=== PATIENT | female | born 1990 | race Caucasian/White ===

== ENCOUNTER 2017-05-27 14:18 | Inpatient (IN) | payer OTHER ==
[2017-05-27 15:20] LABS: Hematocrit 40 % (35-47); Mean Corpuscular HGB Conc 33 g/dl (31-36); Mean Corpuscular Hemoglobin 28 pg (27-31); Mean Corpuscular Volume 85 fL (80-97); Mean Platelet Volume 8 um3 (7.4-10.4); Platelet Count 421 10^3/ul (150-450); Red Blood Count 4.71 10^6/ul (4.0-5.4); Red Cell Distribution Width 15 % (10.5-15); White Blood Count 11.4 10^3/ul (3.5-10.8)
[2017-05-27] MEDS ORDERED: Sodium Citrate/Citric Acid* 15 ML UDC ONE (15:24)
[2017-05-27] MEDS ORDERED: ceFOXitin 2 GM IVPREMIX* 2 GM/50 ML BAG ONE (15:24)
[2017-05-27] MEDS ORDERED: ceFOXitin 2 GM IVPREMIX* 2 GM/50 ML BAG IVPB ONE (15:33)
[2017-05-27] MEDS ORDERED: Sodium Citrate/Citric Acid* 15 ML UDC PO ONE (15:33)
[2017-05-27] MEDS ORDERED: Naloxone* 0.4 MG/ML 1 ML VIAL IV PRN (16:38)
[2017-05-27] MEDS ORDERED: oxyCODONE TAB* 5 MG TAB PO PRN (16:38)
[2017-05-27] MEDS ORDERED: Nalbuphine* 20 MG/ML 1 ML VIAL IV PRN ×2 (16:38)
[2017-05-27] MEDS ORDERED: DiMENhydriNATE IV* 50 MG/ML VIAL IV PUSH PRN (16:38)
[2017-05-27] MEDS ORDERED: diPHENhydraMINE IV* 50 MG/ML 1 ml VIAL (BENADRYL) IV PRN (16:38)
[2017-05-27] MEDS ORDERED: HYDROmorphone INJ* 1 MG/ML CARPUJECT SYRINGE IV PRN (16:38)
[2017-05-27] MEDS ORDERED: Zolpidem TAB* 5 MG PO PRN (17:04)
[2017-05-27] MEDS ORDERED: Glycerin ADULT SUPP PR PRN (17:04)
[2017-05-27] MEDS ORDERED: Witch Hazel PAD* JAR TOPICAL PRN (17:04)
[2017-05-27] MEDS ORDERED: Dibucaine 1% 28.35 GM TUBE PR PRN (17:04)
[2017-05-27] MEDS ORDERED: Ibuprofen TAB* 600 MG PO PRN (17:04)
[2017-05-27] MEDS ORDERED: Ketorolac INJ* 30 MG/ML 1 ML VIAL ONE (17:30)
[2017-05-27] MEDS: Ketorolac INJ* 30 MG/ML 1 ML VIAL IV PRN ×2 (17:34→23:20)
[2017-05-27] MEDS ORDERED: Oxytocin in LR* 20 UNITS/1,000 ML BAG IVPB SCH (18:00)
[2017-05-27 18:56] LABS: ABS Basophils 0.1 10^3/ul (0-0.2); ABS Eosinophils 0.1 10^3/ul (0-0.6); ABS Monocytes 0.7 10^3/ul (0-0.8); ABS Neutrophils 8.2 10^3/ul (1.5-7.7); ABS Nucleated RBC 0.02 10^3/ul; Eosinophil % 0.9 % (0-6); Nucleated Red Blood Cells % 0.1
[2017-05-27] MEDS: Simethicone TAB* 80 MG TAB.CHEW PO SCH ×2 (19:46→20:40)
[2017-05-27] MEDS: Docusate CAP* 100 MG PO SCH (20:40)
[2017-05-27] MEDS: Acetaminophen TAB* 325 MG PO PRN (21:38)
[2017-05-28] MEDS: Acetaminophen TAB* 325 MG PO PRN (04:03)
--- NOTE | 2017-05-28 04:30 | OP ---
DATE OF OPERATION: 05/27/17 - ROOM #MCHOB-102 DATE OF : 86 SURGEON: Ashok Brewer MD CASE SEALER: Sofiya Hensley CNM ANESTHESIA: Spinal. PRE-OP DIAGNOSES: Breech presentation, chronic hypertension, in labor. POST-OP DIAGNOSES: Breech presentation, chronic hypertension, in labor. OPERATIVE PROCEDURE: Low-transverse section. ESTIMATED BLOOD LOSS: 600 cc. FINDINGS: This is a 27-year-old patient who has had chronic hypertension throughout her . She was scheduled for a repeat section at 37 plus weeks. Due to a breech presentation and her chronic hypertension, she came in, in labor the day before her scheduled surgery and was found to be 4 to 5 by the nurses and sandra regularly with category 1 tracing. After the risks, benefits, alternatives, and indications were discussed, we proceeded with her on that day. At the time of , she had a viable female. Apgars 8 and 9, weight was 7 pounds 6 ounces. Normal appearing uterus , fallopian tubes, and ovaries. No evidence for cause for the breech presentation. DESCRIPTION OF PROCEDURE: The patient identified, procedure identified as low transverse section. The patient was taken to the operating room, prepped and draped in the usual fashion in the left lateral recumbent position under spinal anesthesia. A Pfannenstiel incision was made in the abdomen and carried down through fat, fascia, and peritoneum. A transverse incision was made in the lower uterine segment and extended laterally using blunt dissection. The above infant was delivered through the incision with ease. The cord was doubly clamped and cut and the was handed to the awaiting software verification engineer. Cord blood was obtained. Placenta delivered spontaneously. The uterus was wiped out with a wet lap sponge. The uterine incision was then closed using 0 Polysorb in a running fashion. A second layer was used to imbricate the first layer. Good hemostasis was verified. The uterus was placed back into the abdominal cavity. The gutters were wiped out with a wet lap sponge. Again, the hemostasis was verified. The peritoneum was then closed using 3-0 Polysorb in a running fashion. Good hemostasis achieved in the subrectus layers. The fascia was closed using 0 Polysorb in a running fashion. Hemostasis was achieved in the subcu and the skin was closed with 4-0 Monocryl in a subcuticular fashion. All sponge and instrument counts were correct and the patient returned to the recovery room in stable condition. [id number]/[facility] #: [id number] [facility]ERS[facility] HOSPITALSabina
[2017-05-28] MEDS: Ketorolac INJ* 30 MG/ML 1 ML VIAL IV PRN ×2 (05:29→11:44)
[2017-05-28 06:40] LABS: ABS Basophils 0.1 10^3/ul (0-0.2); ABS Eosinophils 0.1 10^3/ul (0-0.6); ABS Lymphocytes 1.4 10^3/ul (1.0-4.8); ABS Monocytes 1.2 10^3/ul (0-0.8); ABS Neutrophils 11.3 10^3/ul (1.5-7.7); ABS Nucleated RBC 0 10^3/ul; Eosinophil % 0.4 % (0-6); Hematocrit 32 % (35-47); Hemoglobin 10.4 g/dl (12.0-16.0); Mean Corpuscular HGB Conc 33 g/dl (31-36); Mean Corpuscular Hemoglobin 28 pg (27-31); Mean Corpuscular Volume 85 fL (80-97); Mean Platelet Volume 8 um3 (7.4-10.4); Nucleated Red Blood Cells % 0; Platelet Count 326 10^3/ul (150-450); Red Cell Distribution Width 15 % (10.5-15); White Blood Count 14.1 10^3/ul (3.5-10.8)
[2017-05-28] MEDS: oxyCODONE/Acetamin 5/325 MG* TAB PO PRN ×3 (08:19→20:33)
[2017-05-28] MEDS: Docusate CAP* 100 MG PO SCH ×3 (08:21→20:33)
[2017-05-28] MEDS: Simethicone TAB* 80 MG TAB.CHEW PO SCH ×5 (08:21→20:33)
[2017-05-28] MEDS ORDERED: Ferrous Gluconate TAB* 324 MG TAB PO SCH (09:00)
[2017-05-28] MEDS: Ibuprofen TAB* 600 MG PO PRN (17:23)
[2017-05-29] MEDS: Ibuprofen TAB* 600 MG PO PRN ×4 (00:17→23:15)
[2017-05-29] MEDS: Acetaminophen TAB* 325 MG PO PRN (00:17)
[2017-05-29] MEDS: oxyCODONE/Acetamin 5/325 MG* TAB PO PRN ×5 (04:45→23:16)
[2017-05-29] MEDS: Simethicone TAB* 80 MG TAB.CHEW PO SCH ×4 (09:55→23:17)
[2017-05-29] MEDS: Docusate CAP* 100 MG PO SCH ×3 (09:55→23:18)
[2017-05-30 07:59] LABS: ABS Basophils 0 10^3/ul (0-0.2); ABS Eosinophils 0.2 10^3/ul (0-0.6); ABS Lymphocytes 2.2 10^3/ul (1.0-4.8); ABS Monocytes 0.9 10^3/ul (0-0.8); ABS Nucleated RBC 0 10^3/ul; Eosinophil % 1.7 % (0-6); Hematocrit 33 % (35-47); Hemoglobin 10.9 g/dl (12.0-16.0); Lymphocyte % 19.1 % (25-47); Mean Corpuscular HGB Conc 33 g/dl (31-36); Mean Corpuscular Hemoglobin 28 pg (27-31); Mean Corpuscular Volume 85 fL (80-97); Mean Platelet Volume 8 um3 (7.4-10.4); Nucleated Red Blood Cells % 0; Platelet Count 444 10^3/ul (150-450); Red Blood Count 3.89 10^6/ul (4.0-5.4); Red Cell Distribution Width 15 % (10.5-15); White Blood Count 11.4 10^3/ul (3.5-10.8)
[2017-05-30 08:09] LABS: EGFR Non-African American 100.6 (>60)
[2017-05-30] MEDS: Docusate CAP* 100 MG PO SCH ×3 (08:45→21:38)
[2017-05-30] MEDS: Simethicone TAB* 80 MG TAB.CHEW PO SCH ×4 (08:45→21:38)
[2017-05-30] MEDS ORDERED: NS 0.9% w/ 40 Meq KCL 1000 ML* 1,000 ML IV SCH (09:00)
[2017-05-30] MEDS: oxyCODONE/Acetamin 5/325 MG* TAB PO PRN (09:40)
--- NOTE | 2017-05-30 11:07 | CONS ---
CONSULTATION REPORT: DATE OF EVALUATION: 05/30/17 at 7 a.m. REQUESTING PHYSICIAN: Dr. Madison Yang. CHIEF COMPLAINT: Palpitations. HISTORY OF PRESENT ILLNESS: Ms. Harding is a 27-year-old lady with a past medical history of SVT, status post ablation; migraine; Arnold-Chiari malformation type I, status post repair; chronic hypertension through , who was admitted on 05/27/17 at 37 weeks of for a due to breech presentation and chronic hypertension. The patient was doing well in the postop period and the plan was actually for the patient to be discharged home today, but last night she had 1 episode of palpitations that was associated with heart pounding and complains of "not feeling right." Her heart rate was found to be 197 and the patient received ice to the forehead, was encouraged to bear down, and with those maneuvers, her rate dropped to 130s. Her symptoms improved and by the time an EKG was performed, she was found to be the sinus tachycardia at 118 beats per minute. The patient states that she was feeling fine overnight after that episode, but around 7 in the morning, she developed the same symptoms of chest tightness, heart pounding, and racing, some shortness of breath, lightheadedness. Her heart rate was found to be greater than 200 and the hospitalist service was called for evaluation. On my arrival to the room, the patient appeared to be pale and was complaining of lightheadedness. Heart rate on the portable monitor was 240 showing a narrow complex tachycardia. The patient's blood pressure was 130/100, but considering her symptoms and clinical appearance, decision was made to give her adenosine. The patient received 1 dose of 6 mg IV and her SVT broke into sinus tachycardia with heart rate between 130s and 140s. She had immediate improvement of her symptoms. Following adenosine, the patient received 5 mg of metoprolol IV and 25 mg of metoprolol tartrate p.o. and she was transferred to the telemetry floor for further monitoring. The patient states she has a history of SVT and in 2012, she had an ablation performed by Dr. Julian Pereira at [facility]. She states that she did well after the procedure and was controlled with metoprolol tartrate 25 mg twice a day, but this was discontinued a couple of years ago as she remained asymptomatic. The patient states she has sporadic episodes of palpitations. She states that usually lying down for 20 to 30 minutes, it is enough to resolve the episode and she has not required medications and has not had further cardiology followup since. PAST MEDICAL HISTORY: 1. Migraines. 2. Arnold-Chiari malformation type I, status post repair in 2011. 2. SVT, status post ablation in 2013. 3. Chronic hypertension during her . MEDICATIONS: Medication list prior to admission vitamin 1 tablet p.o. daily. ALLERGIES: With PINEAPPLE, the patient experienced a rash. FAMILY HISTORY: Grandfather had a history of melanoma. SOCIAL HISTORY: The patient denies tobacco, alcohol, or drug use. She has a master's degree. She is and surrogate decision maker is her , Jerrod Harding, phone number is [phone]. REVIEW OF SYSTEMS: A 14 point review of systems was performed and all the pertinent negative and positive findings are in the HPI. PHYSICAL EXAMINATION: Vital Signs: Temperature 97.5, heart rate is 100, respiratory rate is 18, oxygen saturation is 100% on 2 L nasal cannula, blood pressure is 120/75. General: The patient is a young lady, lying in bed, in no acute distress. HEENT: Pupils are equal, moist mucous membranes. CVS: Normal S1 and S2. Regular rate and rhythm. Chest: Breath sounds present bilaterally with no added sounds. Abdomen is soft. Bowel sounds are present. incision is dry. Neuro: She is alert, awake, and oriented x3. She is able to move all 4 extremities. DIAGNOSTIC STUDIES/LAB DATA: The patient had a CBC that showed a WBC of 11.4, hemoglobin of 10.9, hematocrit of 33, platelets 444 with 70% neutrophils. Chemistry showed sodium of 139, potassium 3.8, chloride of 106, bicarb of 23, BUN of 12, creatinine of 0.69, glucose of 77, calcium of 9.1. TSH and magnesium are pending at the time of this dictation. EKG done at 6:58 a.m. shows narrow complex tachycardia with a heart rate of 199. ASSESSMENT AND PLAN: Ms. Harding is a 27-year-old lady with a past medical history of migraines; chronic hypertension during ; Arnold-Chiari malformation type I, status post repair; supraventricular tachycardia, status post ablation, admitted for section due to breech presentation, who developed supraventricular tachycardia, the reason why the hospitalist service was consulted: 1. Supraventricular tachycardia: The patient was symptomatic with heart rate of 240 and her supraventricular tachycardia broke with 1 dose of adenosine. She will be continued on metoprolol as this drug has worked well for her in the past. She will be monitored on telemetry to make sure she does not have any recurrence over the next 24 hours. A Cardiology consultation was requested with Dr. Fu. We are going to follow her TSH and magnesium and we are going to obtain the records from her prior ablation at [facility]. 2. Status post section. The patient appears to be doing well from a postop point of view. She states that her pain is controlled and she is actually anxious to be discharged home. I discussed the case with OB and Pediatrics and we all agree that the patient can continue to breast-feed on her current medication regimen. 3. DVT prophylaxis. The patient has a score of 2 on the DVT Prophylaxis Risk Assessment Guide and she will have SCDs while in bed and we are going to encourage ambulation. 4. Code status is full. TIME SPENT: Approximately 60 minutes was spent with the patient interview, medical records review, physical examination, more than half of this time was spent face-to- face with the patient in coordination of care. [id number]/[facility] #: [id number] JANYD
--- NOTE | 2017-05-30 11:56 | CONS ---
CC: Dr. Brewer CARDIOLOGY CONSULTATION: DATE OF CONSULT: 05/30/17 INDICATION FOR CONSULT: SVT. HISTORY OF PRESENT ILLNESS: The patient is a 27-year-old female with a history of SVT in the past. She has had SVT ablation 5 years ago. The patient states that she will occasionally get palpitatio ns in the last 5 years. They generally last just 5 or 10 seconds and then resolve on their own. Th e patient underwent section yesterday and delivered a 7-pound baby girl. She was observed overnight. Overnight, she had onset of her SVT at 240 beats per minute. She felt slightly lighthead ed with it, she did not have any chest pain. The patient was given adenosine and converted back to normal sinus rhythm. A couple of hours later, she had another episode of SVT, again requiring adeno sine conversion. This morning, the patient has no complaints. She has no chest pain. She has no l ightheadedness, dizziness, or syncope. PAST MEDICAL HISTORY: Significant for SVT, history of Chiari decompression in 2011. She had a cesa rean section yesterday. OUTPATIENT MEDICATIONS: None. ALLERGIES: No medical allergies. FAMILY HISTORY: No family history of early coronary artery disease or arrhythmias. SOCIAL HISTORY: She is . She denies tobacco or alcohol use. She does exercise regularly. PHYSICAL EXAM: Height is 5 feet 5 inches, weight is 195 pounds. Temperature 98, heart rate is 100, respiratory rate is 18, blood pressure 136/84. Sclerae anicteric. Oropharynx is pink without eryt servando. Carotids are 2+ without bruits. JVD is normal. Thyroid is normal. Cardiac Exam: S1, S2 wit hout any murmurs, rubs, or gallops. PMI is normal. Lungs are clear to auscultation. There is no d ullness to percussion. Abdomen is post-gravid, mildly tender to palpation, minimal bowel sounds. E xtremities show no edema. She has 2 + pulses throughout. The patient is awake, alert, and oriented. She moves all 4 extremities equally. DIAGNOSTIC STUDIES/LAB DATA: CBC: White count 11, hemoglobin 10, hematocrit 33, platelet count 444 . Chemistries are within normal limits. Potassium, BUN and creatinine, thyroid are all normal. EKG demonstrates sinus tachycardia at 105 beats per minute. This morning, she had an EKG showing an SVT at 240 beats per minute with a narrow complex rhythm. IMPRESSION: This is a 27-year-old female with a history of supraventricular tachycardia, who had an episode of supraventricular tachycardia last night. She was post delivery after a section . The patient responded quickly to adenosine infusion. At this point, my recommendation is the patient be discharged from the hospital on Lopressor 12.5 mg b.i.d. As an outpatient, I will schedule the patient for an echocardiogram for reevaluation of her cardiac status. I will see the patient in followup after that. This was discussed with Dr. Hoskins. [id number]/[facility] #: [id number]
[2017-05-30] MEDS: Ibuprofen TAB* 600 MG PO PRN ×2 (12:30→19:36)
[2017-05-30] MEDS: Acetaminophen TAB* 325 MG PO PRN ×2 (14:21→21:39)
[2017-05-30] MEDS ORDERED: Potassium Chlor TAB* 20 MEQ TAB.ER PO ONE (16:11)
[2017-05-30] MEDS: Metoprolol Tartrate TAB* 25 MG PO SCH (17:47)
[2017-05-30] MEDS ORDERED: Metoprolol Tartrate TAB* 25 MG PO SCH (20:00)
[2017-05-31 05:19] VITALS: BP 131/77
[2017-05-31] MEDS: Acetaminophen TAB* 325 MG PO PRN (06:28)
[2017-05-31] MEDS: Metoprolol Tartrate TAB* 25 MG PO SCH (06:28)
--- NOTE | 2017-06-01 01:18 | DS ---
CC: Dr. Lopez; Dr. Fu. DISCHARGE SUMMARY: ADDENDUM: DATE OF ADMISSION: 05/27/17 DATE OF DISCHARGE: 05/31/17 MOTHER REPAIRER: Dr. Lopez. CONSULTING CARDIOLOGY: Dr. Fu. DISCHARGE DIAGNOSES: 1. Status post section delivery. 2. Episode of supraventricular tachycardia. Please note that this the summary of a consultation done by the hospitalist service. Ms. Meaghan rao s a 27-year-old lady with a past medical history of migraines; Arnold-Chiari malformation type 1, st atus post repair; SVT, status post ablation; chronic hypertension; who was admitted on 05/27/17 for a delivery at 37 weeks of . For details about her obstetric care, I refer you to Dr. Lopez's discharge summary. On 05/30/17, the hospitalist service was consulted because the patient had an episode of SVT. For m ore details about the episode, I refer you to my consultation from 05/30/17. In summary, the patien lina was found to have a heart rate greater than 200 with a narrow tachycardia persistently requiring a denosine and she was later on transferred to the telemetry floor for monitoring. She was seen in consultation by Cardiology (Dr. Fu) and his recommendation was for the patient to be discharged home on metoprolol and to follow up with him as outpatient and he will also perform a n echocardiogram as outpatient. Initially, the plan was for the patient to be started on 12.5 mg of metoprolol, but as she continued to have some tachycardia, she was discharged on 25 mg of metoprolo l tartrate twice a day for a week, to be tapered to 12.5 mg twice a day after that. The patient had no further episodes of SVT while on telemetry, only brief episodes of sinus tachycardia, usually rel ated to anxiety or emotional episodes with her baby. The patient is medically stable for discharge at this time. [id number]/[facility] #: [id number]
== END 2017-05-31 08:45 | disposition home or self-care (01) | DRG 765 ==
LOC: MCHOBOUT 14:18 → INTOOBSV 14:55 → MCHOB 14:55 → OBSVTOIN 14:55 → MCHOB 17:21 → MEDTELE 05-30 08:04
PROVIDERS: ADMIT Internal Medicine; ATTEND Internal Medicine
PROC: 10D00Z1 Extraction of Products of Conception, Low, Open Approach (ICD-10-PCS; principal; 2017-05-27 15:50)
DX: O32.1XX0 Maternal care for breech presentation, not applicable or unspecified (principal); O60.23X1 Term delivery with preterm labor, third trimester, fetus 1; O10.92 Unspecified pre-existing hypertension complicating childbirth; I47.1 Supraventricular tachycardia; O69.81X0 Labor and delivery complicated by cord around neck, without compression, not applicable or unspecified; O77.0 Labor and delivery complicated by meconium in amniotic fluid; O90.89 Other complications of the puerperium, not elsewhere classified; R94.31 Abnormal electrocardiogram [ECG] [EKG]; Z3A.37 37 weeks gestation of pregnancy; Z37.0 Single live birth; Z91.018 Allergy to other foods
CPT/HCPCS: 36415; 80048; 83735; 84443; 85025; 86850; 86900; 86901; 93005; 94760; A9270-GY; G0378; J0694; J1885

== ENCOUNTER 2017-11-10 12:07 | Emergency (ER) | payer OTHER ==
[2017-11-10 12:43] LABS: ABS Basophils 0.1 10^3/ul (0-0.2); ABS Eosinophils 0.1 10^3/ul (0-0.6); ABS Lymphocytes 2.2 10^3/ul (1.0-4.8); ABS Monocytes 0.5 10^3/ul (0-0.8); ABS Neutrophils 3.2 10^3/ul (1.5-7.7); ABS Nucleated RBC 0 10^3/ul; Eosinophil % 2.3 % (0-6); Hematocrit 41 % (35-47); Hemoglobin 13.8 g/dl (12.0-16.0); Lymphocyte % 35.5 % (25-47); Mean Corpuscular HGB Conc 34 g/dl (31-36); Mean Corpuscular Hemoglobin 30 pg (27-31); Mean Corpuscular Volume 90 fL (80-97); Nucleated Red Blood Cells % 0; Platelet Count 350 10^3/ul (150-450); Red Blood Count 4.56 10^6/ul (4.0-5.4); Red Cell Distribution Width 14 % (10.5-15); White Blood Count 6.1 10^3/ul (3.5-10.8)
[2017-11-10 13:28] LABS: EGFR Non-African American 79.1 (>60)
[2017-11-10] MEDS ORDERED: Iohexol 300* (CONTRAST) 10 ML SDV IV ONE (13:32)
--- NOTE | 2017-11-10 14:16 | RAD ---
HISTORY: Soft tissue mass, lump on back of neck COMPARISONS: None TECHNIQUE: Multiple contiguous axial CT scans were obtained of the neck after the administration of nonionic intravenous contrast, with coronal and sagittal multiplanar reformations. FINDINGS: BRAIN AND ORBITS: The visualized brain and orbits are normal. The patient is status post suboccipital craniectomy. PARANASAL SINUSES: The visualized paranasal sinuses are clear. SALIVARY GLANDS: The parotid glands, submandibular glands, sublingual glands are normal. NASAL CAVITY/NASOPHARYNX: The nasal cavity and nasopharynx are normal. ORAL CAVITY/OROPHARYNX: The oral cavity is obscured by streak artifact from dental amalgam. The visualized oral cavity and oropharynx are unremarkable. LARYNGEAL APPARATUS/HYPOPHARYNX: The laryngeal apparatus and hypopharynx are normal. UPPER AIRWAY/UPPER ESOPHAGUS: The visualized upper airway and esophagus are normal. LUNG APICES: The lung apices are clear. THYROID GLAND: The thyroid gland is normal. LYMPH NODES: There is no lymphadenopathy by size criteria. VASCULATURE: The vasculature is unremarkable. BONES AND SOFT TISSUES: As noted above, the patient is status post suboccipital craniotomy. There is post surgical change to the soft tissues of the neck. There is mild prominence of the subcutaneous fat at the base of the neck. It is unclear if this corresponds the palpable abnormality. There is no discrete mass to correspond to the history of palpable abnormality. Mild degenerative changes are noted at C5-C6. OTHER: None. IMPRESSION: 1. STATUS POST SUBOCCIPITAL CLINICALLY. 2. NO LYMPHADENOPATHY BY SIZE CRITERIA. 3. THERE IS MILD PROMINENCE OF THE SUBCUTANEOUS FAT AT THE BASE OF THE NECK. IT IS UNCLEAR IF THIS CORRESPONDS THE PALPABLE ABNORMALITY DESCRIBED IN HISTORY. THERE IS NO DISCRETE MASS TO CORRESPOND TO THE HISTORY OF PALPABLE ABNORMALITY. 4. A NEGATIVE REPORT SHOULD NOT PRECLUDE OR DELAY THE EVALUATION OF A CLINICALLY SUSPICIOUS PALPABLE ABNORMALITY
[2017-11-10 15:43] VITALS: BP 112/74
--- NOTE | 2017-11-10 19:10 | ED ---
Gely Castano Julia, scribed for Reid Mcintyre MD on 11/10/17 at 1429 . Neck Pain - HPI Summary HPI Summary: This patient is a 27 year old F presenting to [facility] with a chief complaint of posterior neck pain and lump for about a week. The patient rates the pain 7/ 10 in severity. Patient was seen at urgent care and was suggested to see a surgeon. Surgeon performed an US, that did not show any fluid. Prior to arrival he suggested she have a CT scan performed. Patient denies cough and fever. Medications reviewed this patient. Pt had sx for chiari malformation. - History of Current Complaint Chief Complaint: EDNeckComplaint Stated Complaint: NECK SWELLING-SENT / STAR Time Seen by Provider: 11/10/17 12:23 Hx Obtained From: Patient Hx Last Menstrual Period: none IUD, 5 month old infant Onset/Duration Of Injury/Symptoms: Weeks Mechanism Of Injury: No Known Trauma Timing: Constant Onset/Duration: Started weeks ago, Still Present Pain Intensity: 7 Pain Scale Used: 0-10 Numeric Location: Discrete At: - posterior C-spine Associated Signs & Symptoms: Positive: Swelling Related History: Similar Episode/Dx As: - chiari malformation - Allergies/Home Medications Allergies/Adverse Reactions: Allergies Allergy/AdvReac Type Severity Reaction Status Date / Time MS Pineapple [Pineapple] Allergy Mild Rash Verified 05/27/17 15:27 Home Medications: Home Medications Metoprolol Tartrate TAB* [Lopressor TAB*] 12.5 mg PO BID 11/10/17 [History Confirmed 11/10/17] PMH/Surg Hx/FS Hx/Imm Hx Cardiovascular History: Reports: Hx Supraventricular Ventricular Tachycardia Sensory History: Denies: Hx Contacts or Glasses, Hx Hearing Aid Opthamlomology History: Denies: Hx Contacts or Glasses Neurological History: Reports: Other Neuro Impairments/Disorders - chiari malformation - Surgical History Surgery Procedure, Year, and Place: CHIARI FORMATION - SURGICAL REPAIR Infectious Disease History: No Infectious Disease History: Denies: Traveled Outside the [place] in Last 30 Days - Social History Alcohol Use: None Substance Use Type: Reports: None Smoking Status (MU): Never Smoked Tobacco Have You Smoked in the Last Year: No Review of Systems Negative: Fever Negative: Cough Positive: Myalgia - neck pain, Edema - posterior neck All Other Systems Reviewed And Are Negative: Yes Physical Exam - Summary Physical Exam Summary: Appearance: Well appearing, no pain distress Skin: warm, dry, reflects adequate perfusion Head/face: normal Eyes: EOMI, VIJAY ENT: normal Neck: supple, soft mass at base of c-spine that is [id number] that is tender and warm to touch Respiratory: CTA, breath sounds present Cardiovascular: RRR, pulses symmetrical Abdomen: non-tender, soft Bowel Sounds: present Musculoskeletal: normal, strength/ROM intact Neuro: normal, sensory motor intact, A&Ox3 Triage Information Reviewed: Yes Vital Signs On Initial Exam: Initial Vitals Temp Pulse Resp BP Pulse Ox 98.6 F 61 14 124/78 100 11/10/17 12:10 11/10/17 12:10 11/10/17 12:10 11/10/17 12:10 11/10/17 12:10 Vital Signs Reviewed: Yes Diagnostics - Vital Signs Vital Signs Temp Pulse Resp BP Pulse Ox 11/10/17 12:10 98.6 F 61 14 124/78 100 - Laboratory Lab Results: Lab Results 11/10/17 11/10/17 Range/Units 12:34 12:34 WBC 6.1 (3.5-10.8) 10^3/ul RBC 4.56 (4.0-5.4) 10^6/ul Hgb 13.8 (12.0-16.0) g/dl Hct 41 (35-47) % MCV 90 (80-97) fL MCH 30 (27-31) pg MCHC 34 (31-36) g/dl RDW 14 (10.5-15) % Plt Count 350 (150-450) 10^3/ul MPV 8.0 (7.4-10.4) um3 Neut % (Auto) 52.7 (38-83) % Lymph % (Auto) 35.5 (25-47) % [place] % (Auto) 8.3 H (0-7) % Eos % (Auto) 2.3 (0-6) % Baso % (Auto) 1.2 (0-2) % Absolute Neuts (auto) 3.2 (1.5-7.7) 10^3/ul Absolute Lymphs (auto) 2.2 (1.0-4.8) 10^3/ul Absolute Monos (auto) 0.5 (0-0.8) 10^3/ul Absolute Eos (auto) 0.1 (0-0.6) 10^3/ul Absolute Basos (auto) 0.1 (0-0.2) 10^3/ul Absolute Nucleated RBC 0 10^3/ul Nucleated RBC % 0 Sodium 140 (139-145) mmol/L Potassium 3.7 (3.5-5.0) mmol/L Chloride 105 (101-111) mmol/L Carbon Dioxide 25 (22-32) mmol/L Anion Gap 10 (2-11) mmol/L BUN 14 (6-24) mg/dL Creatinine 0.85 (0.51-0.95) mg/dL Est GFR ( Amer) 101.7 (>60) Est GFR (Non-Af Amer) 79.1 (>60) BUN/Creatinine Ratio 16.5 (8-20) Glucose 85 (70-100) mg/dL Calcium 9.5 (8.6-10.3) mg/dL Beta HCG, Quant < 0.60 mIU/mL Result Diagrams: 11/10/17 12:34 11/10/17 12:34 Lab Statement: Any lab studies that have been ordered have been reviewed, and results considered in the medical decision making process. - CT Neck CT Interpretation Completed By: Radiologist - 1. STATUS POST SUBOCCIPITAL CLINICALLY. 2. NO LYMPHADENOPATHY BY SIZE CRITERIA. 3. THERE IS MILD PROMINENCE OF THE SUBCUTANEOUS FAT AT THE BASE OF THE NECK. IT IS UNCLEAR IF THIS CORRESPONDS THE PALPABLE ABNORMALITY DESCRIBED IN HISTORY. THERE IS NO DISCRETE MASS TO CORRESPOND TO THE HISTORY OF PALPABLE ABNORMALITY. 4. A NEGATIVE REPORT SHOULD NOT PRECLUDE OR DELAY THE EVALUATION OF A CLINICALLY SUSPICIOUS PALPABLE ABNORMALITY ED Physician has reviewed this report. Re-Evaluation - Re-Evaluation 1 Re-Evaluation Time: 14:27 Comment: Pt is informed of results. Pt will be discharged. Neck Course/Dx - Course Course Of Treatment: pt with soreness over a buffalo hump area of the upper t spine. Labs neg. CT shows no mass, collection or cellulitis. Rx for abx. - Diagnoses Differential Dx/HQI/PQRI: Positive: Neoplasm - mass, cellulitis, Other Provider Diagnoses: Localized soft tissue swelling Discharge - Sign-Out/Discharge Documenting (check all that apply): Discharge - Discharge Plan Condition: Good Disposition: HOME Prescriptions: Cephalexin CAP* [Keflex CAP*] 500 mg PO TID #21 cap Forms: *Work Release Referrals: [facility]ICIAN REFERRAL [Outside] Additional Instructions: warm compresses to area. Iburpofen as needed. Return with fever, worse or other concerns. The documentation as recorded by the Gely forrester Julia accurately reflects the service I personally performed and the decisions made by , Reid Mcintyre MD.
== END 2017-11-10 15:42 | disposition home or self-care (01) ==
LOC: ED 12:07
DX: R22.9 Localized swelling, mass and lump, unspecified (principal); M54.2 Cervicalgia
CPT/HCPCS: 36415; 70491; 80048; 84702; 85025; 99283; Q9967

== ENCOUNTER 2018-09-06 19:04 | Emergency (ER) | payer OTHER ==
[2018-09-06 19:33] VITALS: BP 129/82
--- NOTE | 2018-09-06 19:47 | UC ---
FLU HPI - HPI Summary HPI Summary: 28 yo female presents with fever, fatigue, cough, and chest congestion for the last 3 days. She has been taking ibuprofen for her symptoms with good relief, but her symptoms quickly return. She has a decreased appetite and just wants to "sleep all day". Denies SOB, chest pain, n/v. - History of Current Complaint Chief Complaint: UCGeneralIllness Stated Complaint: CHEST CONGESTION,COUGH Time Seen by Provider: 09/06/18 19:47 Hx Obtained From: Patient Hx Last Menstrual Period: IUD Onset/Duration: Sudden Onset Severity Currently: Moderate Severity Initially: Moderate Pain Intensity: 7 Pain Scale Used: 0-10 Numeric - Allergy/Home Medications Allergies/Adverse Reactions: Allergies Allergy/AdvReac Type Severity Reaction Status Date / Time Pineapple [Pineapple] Allergy Mild Rash Verified 05/27/17 15:27 Home Medications: Home Medications Ibuprofen 600 mg PO ONCE 09/06/18 [History Confirmed 09/06/18] Levonorgestrel (Iud) [Mirena IUD] 1 each VAGINAL DAILY 09/06/18 [History Confirmed 09/06/18] PMH/Surg Hx/FS Hx/Imm Hx Cardiovascular History: Hypertension - Surgical History Surgical History: Yes Surgery Procedure, Year, and Place: [facility] - SURGICAL REPAIR - Family History Known Family History: Positive: Hypertension - Social History Occupation: Employed Full-time Lives: With Family Alcohol Use: None Substance Use Type: None Smoking Status (MU): Never Smoked Tobacco Have You Smoked in the Last Year: No - Immunization History Most Recent Influenza Vaccination: 04/2017 Most Recent Pneumonia Vaccination: na Review of Systems All Other Systems Reviewed And Are Negative: Yes Constitutional: Positive: Fever, Chills, Fatigue, Other - Body aches Skin: Positive: Negative Eyes: Positive: Negative ENT: Positive: Negative Respiratory: Positive: Cough Cardiovascular: Positive: Negative Gastrointestinal: Positive: Negative Neurovascular: Positive: Negative Neurological: Positive: Negative Psychological: Positive: Negative Physical Exam - Summary Physical Exam Summary: GENERAL: NAD. WDWN. No pain distress. SKIN: No rashes, sores, lesions, or open wounds. HEENT: Head: AT/NC Eyes: EOM intact. Conjunctiva clear without inflammation or discharge. Ears: Hearing grossly normal. TMs intact, no bulging, erythema, or edema. Nose: Nasal mucosa pink and moist. NTTP maxillary and frontal sinus. Throat: Posterior oropharynx without exudates, erythema, or tonsillar enlargement. Uvula midline. NECK: Supple. Nontender. No lymphadenopathy. CHEST: CTAB. No r/r/w. No accessory muscle use. Breathing comfortably and in no distress. CV: RRR. Without m/r/g. Pulses intact. Cap refill <2seconds NEURO: Alert. PSYCH: Age appropriate behavior. Triage Information Reviewed: Yes Vital Signs: Initial Vital Signs Temp 99.5 F 09/06/18 19:29 Pulse 108 09/06/18 19:29 Resp 16 09/06/18 19:29 BP 129/82 09/06/18 19:29 Pulse Ox 100 09/06/18 19:29 Laboratory Tests 09/06/18 20:07 Influenza A (Rapid) Positive A Vital Signs Reviewed: Yes Flu Course/Dx - Course Course Of Treatment: POC flu positive. Rx for tamiflu. - Differential Dx/Diagnosis Provider Diagnosis: Influenza Discharge - Sign-Out/Discharge Documenting (check all that apply): Patient Departure All imaging exams completed and their final reports reviewed: No Studies - Discharge Plan Condition: Stable Disposition: HOME Prescriptions: Oseltamivir CAP* [Tamiflu CAP*] 75 mg PO BID #10 cap Patient Education Materials: Influenza (DC) Forms: *Work Release Referrals: No Primary Care Phys,NOPCP [Primary Care Provider] - Additional Instructions: If you develop a fever, shortness of breath, chest pain, new or worsening symptoms - please call your PCP or go to the ED. Rest and drink plenty of fluids! May alternate tylenol and ibuprofen for fever and discomfort. - Billing Disposition and Condition Condition: STABLE Disposition: Home
[2018-09-06 20:11] LABS: Influenza A Molecular POSITIVE (Negative)
== END 2018-09-06 20:43 | disposition home or self-care (01) ==
LOC: UCCORT 19:04
DX: J11.1 Influenza due to unidentified influenza virus with other respiratory manifestations (principal); I10 Essential (primary) hypertension; Z91.018 Allergy to other foods
CPT/HCPCS: 99212; G0463